=== PATIENT | male | born 1980 | race Two or more races ===

== ENCOUNTER 2018-10-11 13:25 | Inpatient (IN) | payer SELFPAY ==
[2018-10-11 13:46] VITALS: BMI 36.2
--- NOTE | 2018-10-11 14:03 | HP ---
CIWA Score Nausea/Vomitin Muscle Tremors: 3 Anxiety: 4-Mod. Anxious/Guarded Agitation: 0-Normal Activity Paroxysmal Sweats: 1-Minimal Palms Moist Orientation: 0-Oriented Tacttile Disturbances: 1-Very Mild Itch/Numbness Auditory Disturbances: 1-Very Mild Visual Disturbances: 1-Very Mild Sensitivity Headache: 2-Mild CIWA-Ar Total Score: 16 - Admission Criteria OASAS Guidelines: Admission for Medically Managed Detox: Requires at least one of the followin. CIWA greater than 12 2. Seizures within the past 24 hours 3. Delirium tremens within the past 24 hours 4. Hallucinations within the past 24 hours 5. Acute intervention needed for co occurring medical disorder 6. Acute intervention needed for co occurring psychiatric disorder 7. Severe withdrawal that cannot be handled at a lower level of care (continued vomiting, continued diarrhea, abnormal vital signs) requiring intravenous medication and/or fluids 8. Patient presents the following: CIWA greater than 12 Admission Criteria Met: Admission criteria met Admission ROS BHS - HPI Chief Complaint: I'm trying to stop this, I don't want to do this anymore, I'm convince alcohol is not for me, it makes me miserable Allergies/Adverse Reactions: Allergies Allergy/AdvReac Type Severity Reaction Status Date / Time No Known Allergies Allergy Verified 12/21/15 16:44 History of Present Illness: 38 yo gentleman here for detox from alcohol - history of black outs but denies seizures. Patient states he was taking ativan to help the shakes (urine tox + bzo) which he obtained from [place] - just came from [place] yesterday where he was living for several months. Long history of use - previous detox and rehab as well ast 12 step meetings, history of alcohol related pancreatitis.. Exam Limitations: Clinical Condition - Ebola screening Have you been sick,other than usual withdrawal symptoms: No - Review of Systems Constitutional: Loss of Appetite, Malaise, Changes in sleep EENT: reports: No Symptoms Reported Respiratory: reports: No Symptoms reported Cardiac: reports: No Symptoms Reported GI: reports: Nausea, Indigestion, Abdominal cramping, Other (rectal burning with defecation) : reports: Frequency Musculoskeletal: reports: Back Pain Integumentary: reports: Dryness Neuro: reports: Headache, Tremors Endocrine: reports: No Symptoms Reported Hematology: reports: No Symptoms Reported Psychiatric: reports: Judgement Intact, Mood/Affect Appropiate, Anxious Other Systems: Reviewed and Negative Patient History - Patient Medical History Hx Anemia: No Hx Asthma: No Hx Chronic Obstructive Pulmonary Disease (COPD): No Hx Cancer: No Hx Cardiac Disorders: No Hx Congestive Heart Failure: No Hx Hypertension: No Hx Hypercholesterolemia: No Hx Pacemaker: No HX Cerebrovascular Accident: No Hx Seizures: No Hx Dementia: No Hx Diabetes: No Hx Gastrointestinal Disorders: Yes (history pancreatitis, Hx GI ulcer) Hx Liver Disease: Yes (due to alcohol) Hx Genitourinary Disorders: No Hx Sexually Transmitted Disorders: No Hx Renal Disease (ESRD): No Hx Thyroid Disease: No Hx Human Immunodeficiency Virus (HIV): No (LAST 2013 NEGATIVE) Hx Hepatitis C: No Hx Depression: Yes (hospitalized last week x 1 day for evaluation (for a ') ) Hx Suicide Attempt: Yes (CUT THE WRIST AT THE AGO OF 8 YRS) Hx Bipolar Disorder: No Hx Schizophrenia: No - Patient Surgical History Past Surgical History: Yes Hx Neurologic Surgery: No Hx Cataract Extraction: No Hx Cardiac Surgery: No Hx Lung Surgery: No Hx Breast Surgery: No Hx Breast Biopsy: No Hx Abdominal Surgery: No Hx Appendectomy: Yes (S/P APPENDECTOMY) Hx Cholecystectomy: No Hx Genitourinary Surgery: No Hx Section: No Hx Orthopedic Surgery: No Anesthesia Reaction: No - PPD History Previous Implant?: Yes Documented Results: Positive w/proof Implanted On Prior [facility] Admission?: No PPD to be Administered?: No - Reproductive History Patient is a Female of Child Bearing Age (11 -55 yrs old): No (male) - Smoking Cessation Smoking history: Current every day smoker Have you smoked in the past 12 months: Yes Aproximately how many cigarettes per day: 3 Hx Chewing Tobacco Use: No Initiated information on smoking cessation: Yes 'Breaking Loose' booklet given: 10/11/18 (give on floor) - Substance & Tx. History Hx Alcohol Use: Yes Substance Use Type: Alcohol Hx Substance Use Treatment: Yes (detox, rehab) - Substances Abused alcohol Route: Oral Frequency: Daily Amount used: 1/5 aakash daily Age of first use: 1 (my dad owned a bar, age [age]) Date of Last Use: 10/11/18 Family Disease History - Family Disease History Family Disease History: Heart Disease: Mother (, HTN, renal ), Sister ( one - living - HTN, anxiety), CA: Father (, ), Mother, Other: Father, Mother, Sister, Daughter (three - ages 17,11,10 -healthy) Admission Physical Exam [facility] - Vital Signs Vital Signs: Vital Signs - 24 hr 10/11/18 13:43 Temperature 97.0 F L Pulse Rate 107 H Respiratory 20 Rate Blood Pressure 158/106 H - Physical General Appearance: Yes: Nourished, Appropriately Dressed, Moderate Distress, Obese, Tremorous, Anxious HEENTM: Yes: Hearing grossly Normal, Normocephalic, Normal Voice, Pharynx Normal Respiratory: Yes: Normal Breath Sounds, No Respiratory Distress Neck: Yes: No masses,lesions,Nodules, Supple Breast: Yes: Breast Exam Deferred Cardiology: Yes: Regular Rhythm, Tachycardia Abdominal: Yes: Normal Bowel Sounds, Flat Genitourinary: Yes: Frequency Back: Yes: Normal Inspection Musculoskeletal: Yes: full range of Motion, Gait Steady Extremities: Yes: Normal Inspection, Non-Tender Neurological: Yes: Fully Oriented, Alert, Normal Mood/Affect, Normal Response Integumentary: Yes: Normal Color, Warm Lymphatic: Yes: Within Normal Limits - Diagnostic (1) Alcohol dependence with uncomplicated withdrawal Current Visit: Yes Status: Chronic (2) Nicotine dependence Current Visit: Yes Status: Chronic Qualifiers: Nicotine product type: cigarettes Substance use status: uncomplicated Qualified Code(s): F17.210 - Nicotine dependence, cigarettes, uncomplicated (3) Hypertension Current Visit: Yes Status: Chronic Qualifiers: Hypertension type: essential hypertension Qualified Code(s): I10 - Essential (primary) hypertension (4) Dehydration Current Visit: Yes Status: Chronic (5) PPD positive, treated Current Visit: Yes Status: Chronic Comment: states took INH x 1 year (6) History of pancreatitis Current Visit: Yes Status: Chronic (7) History of gastric ulcer Current Visit: Yes Status: Chronic (8) Tachycardia Current Visit: Yes Status: Acute (9) Obesity (BMI 30-39.9) Current Visit: Yes Status: Chronic Cleared for Admission [facility] - Detox or Rehab [facility] Level of Care: Medically Managed Detox Regimen/Protocol: Librium S Breath Alcohol Content Breath Alcohol Content: 0.305 Urine Drug Screen - Results Drug Screen Negative: No Urine Drug Screen Results: BAR-Barbiturates, BZO-Benzodiazepines
[2018-10-11] MEDS ORDERED: MAGNESIUM CITRATE 300 ML BOTTLE PO PRN (14:18)
[2018-10-11] MEDS ORDERED: LOPERAMIDE HCL 2 MG CAPSULE PO PRN (14:18)
[2018-10-11] MEDS ORDERED: IBUPROFEN 400 MG TABLET (FP) PO PRN (14:18)
[2018-10-11] MEDS ORDERED: MAG HYDROX/AL HYDROX/SIMETH 30 ML UNIT-DOSE CUP PO PRN (14:18)
[2018-10-11] MEDS ORDERED: ACETAMINOPHEN 325 MG TABLET (FP) PO PRN (14:18)
[2018-10-11] MEDS ORDERED: NICOTINE POLACRILEX 4 MG GUM BUC PRN (14:18)
[2018-10-11] MEDS ORDERED: P-EPHED 60MG/TRIPROLIDI 2.5MG TABLET PO PRN (14:18)
[2018-10-11] MEDS ORDERED: guaiFENesin/D-METHORPHAN HB 10 ML UNIT-DOSE CUPS PO PRN (14:18)
[2018-10-11] MEDS ORDERED: MAGNESIUM HYDROX 2400MG/30ML ORAL SUSPENSION 30 ML CUP PO PRN (14:18)
[2018-10-11] MEDS ORDERED: MENTHOL/PHENOL 1 EACH UD MM PRN (14:18)
[2018-10-11] MEDS: chlordiazePOXIDE HCL 25 MG CAPSULE PO SCH ×2 (18:44→22:43)
[2018-10-11] MEDS: ONDANSETRON *ODT* 4 MG TABLET SL PRN (19:16)
[2018-10-11] MEDS: chlordiazePOXIDE HCL 25 MG CAPSULE PO PRN (21:06)
[2018-10-11] MEDS: hydrOXYzine PAMOATE 25 MG CAPSULE (FP) PO PRN (21:07)
[2018-10-11] MEDS ORDERED: hydrOXYzine PAMOATE 25 MG CAPSULE (FP) PO ONE (22:00)
[2018-10-11] MEDS: THIAMINE HCL 100 MG TABLET (FP) PO SCH (22:42)
[2018-10-11] MEDS ORDERED: chlordiazePOXIDE HCL 25 MG CAPSULE PO ONE (23:00)
[2018-10-12] MEDS: chlordiazePOXIDE HCL 25 MG CAPSULE PO SCH ×4 (05:17→22:46)
--- NOTE | 2018-10-12 08:19 | CONSULT ---
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 Patient has a long history of ETOH abuse, and nicotine dependence has been sober for the past 9 mo until he relapsed about 3-4 mo ago. He drinks Freda daily, he admitted Black out spells , no seizure related ETOH. Past history of smoking Marijuana and cocaine use. He occasionally use Ativan to help him alleviate hius drinking and decreae his hand tremor. It is to note that his urine tox was + for Benzo and Barbiturates. He has had prior Detox treatment and Rehabilitation In [facility] and [facility]. His most recent Detox admission was at [facility] earlier this year Medical History: His medical history is significant for hemorroids, Gastric ulcer, pancreatitis, and abnormal liver function tests. Past history of anal biopsy, apeendectomy Psychiatric History: Patient has had numerous past psychiatric hospitalizations in [facility] due to depression, and shifting mood, his most recent in patient psych admission was @ [facility],in March. Past history of self-cutting episode, after ETOH intoxication and also attempted to drink self to in past. Currently feels depressed, sad, with occasional mood swings with co- occcurring anxiety. He denies auditory or visual hallucination,, denies suicidal r homicidal ideation. Currently medicated with Gabapentin 600 mg po bid and Prozac 20 mg po daily. His medciations has been effective in alleviating his symptoms when sober Physical/Sexual Abuse/Trauma History: Denies past history of abuse Additional Comment: History of prior trouble with the law Mental Status Exam - Mental Status Exam Alert and Oriented to: Time, Place, Person Cognitive Function: Good Patient Appearance: Unkempt Mood: Depressed Affect: Appropriate Patient Behavior: Fatigued, Appropriate, Cooperative Speech Pattern: Clear, Appropriate Voice Loudness: Normal Thought Process: Intact Thought Disorder: Not Present Hallucinations: None, Denies Suicidal Ideation: None, Denies Homicidal Ideation: None, Denies Insight/Judgement: Poor Sleep: Difficulty falling asleep Appetite: Fair Muscle strength/Tone: Normal Gait/Station: Normal Psychiatric Findings - Problem List ([place] 1, 2,3) (1) Alcohol dependence with uncomplicated withdrawal Current Visit: Yes Status: Chronic (2) History of gastric ulcer Current Visit: Yes Status: Chronic (3) History of pancreatitis Current Visit: Yes Status: Chronic (4) Hypertension Current Visit: Yes Status: Chronic Qualifiers: Hypertension type: essential hypertension Qualified Code(s): I10 - Essential (primary) hypertension (5) Obesity (BMI 30-39.9) Current Visit: Yes Status: Chronic (6) Insomnia Current Visit: No Status: Acute (7) S/P appendectomy Current Visit: No Status: Acute (8) Drug-induced mood disorder Current Visit: No Status: Suspected - Initial Treatment Plan Initial Treatment Plan: Continue Detox treatment. Resume prozac 20 mg po daily. Neurontin 600 mg po bid. Monitor progress
[2018-10-12] MEDS: PRENATAL VITAMINS W/ FOLIC ACID TABLET (FP) PO SCH (10:10)
[2018-10-12] MEDS: GABAPENTIN 300 MG CAPSULE (FP) PO SCH ×2 (10:10→22:45)
[2018-10-12] MEDS: FLUoxetine HCL 20 MG CAPSULE (FP) PO SCH (10:10)
[2018-10-12 10:43] LABS: ALBUMIN 3.9 g/dl (3.4-5.0); ALK PHOS 76 U/L (45-117); ANION GAP 7 MMOL/L (8-16); BILIRUBIN,TOTAL 1.4 mg/dL (0.2-1); BLOOD UREA NITROGEN 10 mg/dL (7-18); CALCIUM 8.5 mg/dL (8.5-10.1); CHLORIDE 101 mmol/L (98-107); CO2 29 mmol/L (21-32); CREATININE 0.9 mg/dL (0.55-1.3); GLUCOSE,RANDOM 96 mg/dL (74-106); SGOT/AST 100 U/L (15-37); SGPT/ALT 100 U/L (13-61); SODIUM 138 mmol/L (136-145); TOT PROT 7.1 g/dl (6.4-8.2)
[2018-10-12 10:55] LABS: HEMATOCRIT 38.9 % (35.4-49); HEMOGLOBIN 12.8 GM/dL (11.7-16.9); MCH 29.1 pg (25.7-33.7); MCHC 32.9 g/dl (32.0-35.9); MEAN CELL VOLUME 88.3 fl (80-96); MEAN PLT VOLUME 8.3 fl (7.5-11.1); PLATELET COUNT 94 K/MM3 (134-434); RDW 15.6 % (11.9-15.9); WHITE BLOOD COUNT 5.9 K/mm3 (4.0-10.0)
--- NOTE | 2018-10-12 16:28 | PN ---
S CIWA - CIWA Score Nausea/Vomitin Muscle Tremors: 4-Moderate,w/Arms Extend Anxiety: 4-Mod. Anxious/Guarded Agitation: 1-Slight > Activity Paroxysmal Sweats: 3 Orientation: 0-Oriented Tacttile Disturbances: 1-Very Mild Itch/Numbness Auditory Disturbances: 0-None Visual Disturbances: 0-None Headache: 1-Very Mild CIWA-Ar Total Score: 16 BHS Progress Note (SOAP) Subjective: Sweating, tremor, numbness in fingers, interrupted sleep Objective: 10/12/18 16:23 Last Vital Signs Temp Pulse Resp BP Pulse Ox 97.0 F L 87 18 113/75 10/12/18 13:51 10/12/18 15:30 10/12/18 15:30 10/12/18 13:51 Laboratory Tests 10/12/18 10/12/18 10/12/18 07:30 07:30 07:30 WBC 5.9 RBC 4.40 Hgb 12.8 Hct 38.9 MCV 88.3 MCH 29.1 MCHC 32.9 RDW 15.6 D Plt Count 94 L D MPV 8.3 Sodium 138 Potassium 3.0 L Chloride 101 Carbon Dioxide 29 Anion Gap 7 L BUN 10 Creatinine 0.9 Creat Clearance w eGFR > 60 Random Glucose 96 Calcium 8.5 Total Bilirubin 1.4 H AST 100 H ALT 100 H Alkaline Phosphatase 76 Total Protein 7.1 Albumin 3.9 RPR Titer Nonreactive Labs reviewed: K 3.0, total bilirubin 1.4 Assessment: 10/12/18 16:24 Withdrawal symptoms Noted with hypokalemia and elevated total bilirubin Plan: Continue detox Encouraged PO water hydration Hypokalemia: asymptomatic, EKG normal; start K Dur 40 Meq PO liquid x 2 doses then K Dur 20 Meq PO daily, repeat serum K level in AM Elevated total bilirubin: asymptomatic; most likely due to alcohol dependence, repeat serum total bilirubin level
[2018-10-12] MEDS ORDERED: POTASSIUM CHLORIDE ORAL LIQUID 20 MEQ/15 ML PO ONE ×2 (16:30→22:00)
[2018-10-12] MEDS: hydrOXYzine PAMOATE 25 MG CAPSULE (FP) PO PRN ×2 (17:35→22:50)
--- NOTE | 2018-10-12 20:37 | PN ---
BHS Progress Note Note: Patient's blood pressure is B/P 149/110. Patient is asymptomatic. Vital Signs Temperature 97.1 F L 10/12/18 20:32 Pulse Rate 97 H 10/12/18 20:32 Respiratory Rate 18 10/12/18 20:32 Blood Pressure 149/110 H 10/12/18 20:32 O2 Sat by Pulse Oximetry (%) Action: Clonidine 0.1mg tablet oral ordered
[2018-10-12] MEDS ORDERED: cloNIDine HCL 0.1 MG TABLET PO ONE (20:45)
[2018-10-12] MEDS: ONDANSETRON *ODT* 4 MG TABLET SL PRN (22:13)
[2018-10-12] MEDS: THIAMINE HCL 100 MG TABLET (FP) PO SCH (22:45)
[2018-10-13] MEDS: chlordiazePOXIDE HCL 25 MG CAPSULE PO SCH ×2 (05:36→10:31)
[2018-10-13] MEDS: POTASSIUM CHLORIDE TABS 20 MEQ TABLET.ER (FP) PO SCH (10:29)
[2018-10-13] MEDS: GABAPENTIN 300 MG CAPSULE (FP) PO SCH ×2 (10:30→22:08)
[2018-10-13] MEDS: PRENATAL VITAMINS W/ FOLIC ACID TABLET (FP) PO SCH (10:31)
[2018-10-13] MEDS: FLUoxetine HCL 20 MG CAPSULE (FP) PO SCH (10:31)
[2018-10-13 10:52] LABS: BILIRUBIN,TOTAL 1.4 mg/dL (0.2-1); POTASSIUM 3.6 mmol/L (3.5-5.1)
[2018-10-13] MEDS: chlordiazePOXIDE 5 MG CAPSULE PO SCH ×2 (17:38→22:07)
[2018-10-13] MEDS: ONDANSETRON *ODT* 4 MG TABLET SL PRN (17:39)
[2018-10-13] MEDS: hydrOXYzine PAMOATE 25 MG CAPSULE (FP) PO PRN ×2 (17:39→21:16)
--- NOTE | 2018-10-13 18:32 | PN ---
BHS CIWA - CIWA Score Nausea/Vomitin-Mild Nausea/No Vomiting Muscle Tremors: 3 Anxiety: 3 Agitation: 3 Paroxysmal Sweats: 3 Orientation: 0-Oriented Tacttile Disturbances: 0-None Auditory Disturbances: 0-None Visual Disturbances: 0-None Headache: 0-None Present CIWA-Ar Total Score: 13 BHS Progress Note (SOAP) Subjective: abd pain sweats shakes Objective: 10/13/18 18:31 A & O x 3 sitting up on bed Assessment: 10/13/18 18:31 withdrawal sx Plan: continue detox
[2018-10-13] MEDS: MELATONIN 5 MG TABLETS PO PRN (22:08)
[2018-10-13] MEDS: THIAMINE HCL 100 MG TABLET (FP) PO SCH (22:08)
[2018-10-14] MEDS: chlordiazePOXIDE 5 MG CAPSULE PO SCH ×2 (05:39→10:07)
[2018-10-14] MEDS: hydrOXYzine PAMOATE 25 MG CAPSULE (FP) PO PRN ×3 (09:05→22:13)
[2018-10-14] MEDS: PRENATAL VITAMINS W/ FOLIC ACID TABLET (FP) PO SCH (10:07)
[2018-10-14] MEDS: FLUoxetine HCL 20 MG CAPSULE (FP) PO SCH (10:07)
[2018-10-14] MEDS: POTASSIUM CHLORIDE TABS 20 MEQ TABLET.ER (FP) PO SCH (10:07)
[2018-10-14] MEDS: GABAPENTIN 300 MG CAPSULE (FP) PO SCH ×2 (10:07→22:13)
[2018-10-14] MEDS: chlordiazePOXIDE HCL 25 MG CAPSULE PO PRN (12:31)
--- NOTE | 2018-10-14 16:09 | PN ---
BHS Progress Note (SOAP) Subjective: Feels crawling on skin, anxious, sweating, tremor Objective: 10/14/18 16:08 Last Vital Signs Temp Pulse Resp BP Pulse Ox 97.6 F 92 H 20 141/97 10/14/18 13:31 10/14/18 13:31 10/14/18 13:31 10/14/18 13:31 Laboratory Tests 10/12/18 10/12/18 10/12/18 07:30 07:30 07:30 WBC 5.9 RBC 4.40 Hgb 12.8 Hct 38.9 MCV 88.3 MCH 29.1 MCHC 32.9 RDW 15.6 D Plt Count 94 L D MPV 8.3 Sodium 138 Potassium 3.0 L Chloride 101 Carbon Dioxide 29 Anion Gap 7 L BUN 10 Creatinine 0.9 Creat Clearance w eGFR > 60 Random Glucose 96 Calcium 8.5 Total Bilirubin 1.4 H AST 100 H ALT 100 H Alkaline Phosphatase 76 Total Protein 7.1 Albumin 3.9 RPR Titer Nonreactive 10/13/18 07:45 WBC RBC Hgb Hct MCV MCH MCHC RDW Plt Count MPV Sodium Potassium 3.6 Chloride Carbon Dioxide Anion Gap BUN Creatinine Creat Clearance w eGFR Random Glucose Calcium Total Bilirubin 1.4 H AST ALT Alkaline Phosphatase Total Protein Albumin RPR Titer Labs reviewed Assessment: 10/14/18 16:08 Withdrawal symptoms Plan: Continue detox Encouraged PO water intake
[2018-10-14] MEDS: chlordiazePOXIDE HCL 10 MG CAPSULE PO SCH ×2 (17:36→22:12)
[2018-10-14] MEDS: THIAMINE HCL 100 MG TABLET (FP) PO SCH (22:13)
[2018-10-15] MEDS: MELATONIN 5 MG TABLETS PO PRN (00:24)
[2018-10-15] MEDS: chlordiazePOXIDE HCL 10 MG CAPSULE PO SCH (06:04)
[2018-10-15 10:16] VITALS: BP 135/92; PULSE 113; TEMP 96.6
--- NOTE | 2018-10-15 10:30 | PN ---
[facility] Progress Note Note: Psychiatry Attending's note : Approached by patient. Mr Linton expresses concern about his scripts at discharge. " I just relocated from [place] and my medicaid is not active ". Patient worries about his inability to pay for his medications. States that fluoxetine + gabapentin keep him functioning and stable. Fearful of the prospect of decompensation/relapse without his medications. Patient is conversant, well-mannered, pleasant on approach, neatly groomed and goal-directed. Feels well. Eager to maintain adherence to his aftercare (medications + AA fellowship). Indicates that he is currently relying on his sister for temporary housing (she is a [place] resident). As an alternate housing plan, the patient is considering the option of going to a [place] facility. Mental status is stable. Patient is future-oriented, cognitively intact and motivated for sobriety. Noted as euthymic, well-controlled, free of hallucinations/delusions; no evidence of thought disorder. Patient denies suicidal/homicidal ideation, intent or plan. Endorses adequate sleep + appetite. Well rested. Chart reviewed. Medications revisited. Psychiatric consult (10/11/18) by Dr Sims : read and appreciated. Medications confirmed. No adverse effects reported. Endorsed by the patient as effective and well tolerated. Mr Linton is reminded, by this bond underwriter, of side effects/benefits of fluoxetine + gabapentin. Psychoeducation (benefits of sobriety, MAT protocol for relapse prevention, OTP follow-up) : provided in session. Reassurance given : scripts for prozac + gabapentin sent electronically to [facility] (30 day supply). As follows : prozac 20 mg po daily + gabapentin 600 mg po bid. Patient agrees to this plan of care. Baseline.
--- NOTE | 2018-10-15 15:48 | PN ---
BHS Progress Note (SOAP) Subjective: Patient Denies any current Withdrawal symptoms and reports that he feels well overall. Objective: PATIENT A & O X 3, OBSERVED AMBULATING ON UNIT. NO ACUTE DISTRESS. 10/15/18 15:46 Vital Signs Temperature 96.6 F L 10/15/18 10:16 Pulse Rate 113 H 10/15/18 10:16 Respiratory Rate 18 10/15/18 10:16 Blood Pressure 135/92 10/15/18 10:16 O2 Sat by Pulse Oximetry (%) Laboratory Tests 10/12/18 10/12/18 10/12/18 07:30 07:30 07:30 WBC 5.9 RBC 4.40 Hgb 12.8 Hct 38.9 MCV 88.3 MCH 29.1 MCHC 32.9 RDW 15.6 D Plt Count 94 L D MPV 8.3 Sodium 138 Potassium 3.0 L Chloride 101 Carbon Dioxide 29 Anion Gap 7 L BUN 10 Creatinine 0.9 Creat Clearance w eGFR > 60 Random Glucose 96 Calcium 8.5 Total Bilirubin 1.4 H AST 100 H ALT 100 H Alkaline Phosphatase 76 Total Protein 7.1 Albumin 3.9 RPR Titer Nonreactive 10/13/18 07:45 WBC RBC Hgb Hct MCV MCH MCHC RDW Plt Count MPV Sodium Potassium 3.6 Chloride Carbon Dioxide Anion Gap BUN Creatinine Creat Clearance w eGFR Random Glucose Calcium Total Bilirubin 1.4 H AST ALT Alkaline Phosphatase Total Protein Albumin RPR Titer LABS NOTED. Assessment: 10/15/18 15:47 COMPLETION OF DETOX REGIMEN. 10/15/18 15:47 Plan: PATIENT SCHEDULED FOR DISCHARGE FROM DETOX UNIT TODAY.
--- NOTE | 2018-10-15 15:52 | DS ---
[facility] Detox Discharge Summary Admission Date: 10/11/18 Discharge Date: 10/15/18 - History Present History: Alcohol Dependence Additional Comments: PATIENT TO RETURN TO PREVIOUS [facility] ( [place] [place]) FOR AFTERCARE. PATIENT WAS DISCHARGED FROM DETOX UNIT IN STABLE MEDICAL CONDITION. Pertinent Past History: Tachycardia, History of Gastric Ulcer, History of Pancreatitis, HTN, History of Positive PPD, Obesity. - Physical Exam Results Vital Signs: Vital Signs Temperature 96.6 F L 10/15/18 10:16 Pulse Rate 113 H 10/15/18 10:16 Respiratory Rate 18 10/15/18 10:16 Blood Pressure 135/92 10/15/18 10:16 O2 Sat by Pulse Oximetry (%) Pertinent Admission Physical Exam Findings: WITHDRAWAL SYMPTOMS. Laboratory Tests 10/12/18 10/12/18 10/12/18 07:30 07:30 07:30 WBC 5.9 RBC 4.40 Hgb 12.8 Hct 38.9 MCV 88.3 MCH 29.1 MCHC 32.9 RDW 15.6 D Plt Count 94 L D MPV 8.3 Sodium 138 Potassium 3.0 L Chloride 101 Carbon Dioxide 29 Anion Gap 7 L BUN 10 Creatinine 0.9 Creat Clearance w eGFR > 60 Random Glucose 96 Calcium 8.5 Total Bilirubin 1.4 H AST 100 H ALT 100 H Alkaline Phosphatase 76 Total Protein 7.1 Albumin 3.9 RPR Titer Nonreactive 10/13/18 07:45 WBC RBC Hgb Hct MCV MCH MCHC RDW Plt Count MPV Sodium Potassium 3.6 Chloride Carbon Dioxide Anion Gap BUN Creatinine Creat Clearance w eGFR Random Glucose Calcium Total Bilirubin 1.4 H AST ALT Alkaline Phosphatase Total Protein Albumin RPR Titer LABS NOTED. - Treatment Hospital Course: Detox Protocol Followed, Detoxed Safely, Responded well, Discharged Condition Good Patient has Accepted a Rehab Referral to: PT GOING TO [facility] ([place], [place]). - Medication Discharge Medications: Ambulatory Orders Fluoxetine HCl [Prozac -] 20 mg PO DAILY 10/11/18 Fluoxetine HCl [Prozac] 20 mg PO DAILY #30 capsule 10/15/18 Gabapentin [Neurontin] 600 mg PO BID #60 tablet 10/15/18 - Diagnosis (1) Alcohol dependence with uncomplicated withdrawal Status: Acute (2) History of gastric ulcer Status: Chronic (3) Hypertension Status: Chronic Qualifiers: Hypertension type: essential hypertension Qualified Code(s): I10 - Essential (primary) hypertension (4) Obesity (BMI 30-39.9) Status: Chronic (5) PPD positive, treated Status: Chronic (6) Drug-induced mood disorder Status: Suspected (7) Tachycardia Status: Acute (8) Dehydration Status: Chronic (9) Nicotine dependence Status: Chronic Qualifiers: Nicotine product type: cigarettes Substance use status: uncomplicated Qualified Code(s): F17.210 - Nicotine dependence, cigarettes, uncomplicated (10) History of pancreatitis Status: Chronic - AMA Did Patient Leave Against Medical Advice: No
--- NOTE | 2018-10-15 16:55 | EKG ---
Test Reason : Blood Pressure : / mmHG Vent. Rate : 092 BPM Atrial Rate : 092 BPM P-R Int : 154 ms QRS Dur : 092 ms QT Int : 358 ms P-R-T Axes : 064 069 026 degrees QTc Int : 442 ms NORMAL SINUS RHYTHM NORMAL ECG NO PREVIOUS ECGS AVAILABLE Confirmed by PHILL POLANCO MD ([id number]) on 10/15/2018 4:55:29 PM Referred By: Nina Moser Confirmed By:PHILL POLANCO MD
== END 2018-10-15 10:21 | disposition home or self-care (01) | DRG 775 ==
LOC: YASAS 13:25 → Y3N 16:03
PROC: HZ2ZZZZ Detoxification Services for Substance Abuse Treatment (ICD-10-PCS; principal; 2018-10-11)
DX: F10.230 Alcohol dependence with withdrawal, uncomplicated (principal); F17.210 Nicotine dependence, cigarettes, uncomplicated; F19.24 Other psychoactive substance dependence with psychoactive substance-induced mood disorder; I10 Essential (primary) hypertension; R76.11 Nonspecific reaction to tuberculin skin test without active tuberculosis; R00.0 Tachycardia, unspecified; E86.0 Dehydration; E80.7 Disorder of bilirubin metabolism, unspecified; E87.6 Hypokalemia; G47.00 Insomnia, unspecified; E66.9 Obesity, unspecified; Z68.36 Body mass index [BMI] 36.0-36.9, adult; Z91.5 Personal history of self-harm
CPT/HCPCS: 36415; 71046-TC-FY; 80053; 82247; 84132; 85027; 86593; 93005; 93010; J0735; Q0162

== ENCOUNTER 2020-12-16 18:12 | Inpatient (IN) | payer OTHER ==
[2020-12-16] MEDS ORDERED: LACTATED RINGERS SOLUTION 1000 ML INFUS.BAG IV ONE (19:53)
[2020-12-16] MEDS ORDERED: morphine CARPU-JECT 4 MG/1 ML DISP.SYRIN IVPUSH ONE ×2 (19:53→22:11)
[2020-12-16] MEDS ORDERED: ONDANSETRON 4 MG/2 ML VIAL IVPUSH ONE ×2 (19:53→22:11)
[2020-12-16] MEDS ORDERED: morphine SULFATE 4 MG/ML VIAL ONE (20:53)
[2020-12-16] MEDS ORDERED: ONDANSETRON 4 MG/2 ML VIAL ONE ×2 (20:53→22:26)
[2020-12-16] MEDS ORDERED: SODIUM CHLORIDE 0.9% 500 ML INFUS.BAG IV ONE (21:54)
[2020-12-16 22:05] LABS: EOS % 0.3 % (0-4.5); HEMATOCRIT 36.1 % (35.4-49); HEMOGLOBIN 12.7 GM/dL (11.7-16.9); LYMPH % 28.9 % (8-40); MCH 31.7 pg (25.7-33.7); MCHC 35.2 g/dl (32.0-35.9); MEAN CELL VOLUME 90.1 fl (80-96); MEAN PLT VOLUME 7.8 fl (7.5-11.1); MONO % 7.6 % (3.8-10.2); NEUT % 62.2 % (42.8-82.8); PLATELET COUNT 133 K/MM3 (134-434); RDW 13.9 % (11.9-15.9); WHITE BLOOD COUNT 7.1 K/mm3 (4.0-10.0)
[2020-12-16] MEDS ORDERED: ACETAMINOPHEN 1000 MG/100 ML VIAL (NON FORMULARY) IVPB ONE (22:13)
[2020-12-16] MEDS ORDERED: chlordiazePOXIDE HCL 25 MG CAPSULE PO ONE (22:17)
[2020-12-16] MEDS ORDERED: ACETAMINOPHEN INJECTION 100 ML IVPB ONE (22:26)
[2020-12-16] MEDS ORDERED: chlordiazePOXIDE HCL 25 MG CAPSULE ONE (22:26)
[2020-12-16 22:33] LABS: CHLORIDE 102 mmol/L (98-107); POTASSIUM 3.4 mmol/L (3.5-5.1); SODIUM 141 mmol/L (136-145)
[2020-12-16 22:35] LABS: ALBUMIN 4.4 g/dl (3.4-5.0); CALCIUM 8.8 mg/dL (8.5-10.1)
[2020-12-16 22:36] LABS: ANION GAP 18 MMOL/L (8-16); BLOOD UREA NITROGEN 13.3 mg/dL (7-18); CO2 21 mmol/L (21-32); GLUCOSE,RANDOM 80 mg/dL (74-106); LIPASE 80 U/L (73-393)
[2020-12-16 22:38] LABS: CREATININE 1.1 mg/dL (0.55-1.3); SGOT/AST 65 U/L (15-37); SGPT/ALT 69 U/L (13-61)
[2020-12-16 22:40] LABS: BILIRUBIN,TOTAL 1.3 mg/dL (0.2-1); TOT PROT 7.8 g/dl (6.4-8.2)
[2020-12-16 22:41] LABS: ALK PHOS 70 U/L (45-117)
[2020-12-16] MEDS ORDERED: MAGNESIUM SULF 50% (8.12 MEQ/2 ML-1 GM VIAL) IVPB ONE (22:53)
[2020-12-16] MEDS ORDERED: MAGNESIUM SULF 50% (8.12 MEQ/2 ML-1 GM VIAL) ONE (23:39)
[2020-12-16] MEDS ORDERED: LORazepam 2 MG/ML SDV VIAL IVPUSH ONE (23:41)
[2020-12-16] MEDS ORDERED: LORazepam 2 MG/ML SDV VIAL ONE (23:54)
[2020-12-17] MEDS ORDERED: THIAMINE HCL 200 MG/2 ML VIAL IVPB ONE (01:49)
[2020-12-17] MEDS ORDERED: chlordiazePOXIDE HCL 25 MG CAPSULE PO ONE (01:59)
[2020-12-17] MEDS ORDERED: KETOROLAC TROMETHAMINE 30 MG/1 ML VIAL IVPUSH ONE (01:59)
[2020-12-17] MEDS ORDERED: LIDOCAINE 5% TOPICAL PATCH TP ONE (01:59)
[2020-12-17] MEDS ORDERED: LORazepam 2 MG/ML SDV VIAL IVPUSH ONE (02:00)
[2020-12-17 02:41] LABS: POTASSIUM 3.8 mmol/L (3.5-5.1)
[2020-12-17 02:42] LABS: BLOOD UREA NITROGEN 13.4 mg/dL (7-18); CALCIUM 8.7 mg/dL (8.5-10.1)
[2020-12-17 02:46] LABS: CREATININE 0.9 mg/dL (0.55-1.3)
[2020-12-17] MEDS ORDERED: THIAMINE HCL 200 MG/2 ML VIAL ONE (03:02)
[2020-12-17] MEDS ORDERED: chlordiazePOXIDE HCL 25 MG CAPSULE ONE (03:02)
[2020-12-17] MEDS ORDERED: LORazepam 2 MG/ML SDV VIAL ONE (03:02)
[2020-12-17] MEDS ORDERED: KETOROLAC TROMETHAMINE 30 MG/1 ML VIAL ONE (03:03)
[2020-12-17] MEDS ORDERED: LIDOCAINE 5% TOPICAL PATCH ONE (03:03)
[2020-12-17] MEDS ORDERED: POTASSIUM CHLORIDE 20 MEQ PREMIX IVPB 100 ML IVPB ONE (03:51)
[2020-12-17] MEDS ORDERED: POTASSIUM CHLORIDE 10 MEQ PREMIX IVPB (POTASSIUM RIDER) IVPB ONE (03:51)
[2020-12-17 04:35] LABS: MAGNESIUM 2.5 mg/dL (1.8-2.4)
[2020-12-17 04:41] LABS: EPI CELLS 11 /uL (0-25.1); HYALINE CASTS 5 /uL (0-3.1); URINE APPEARANCE CLEAR; URINE BACTERIA 66 /uL (0-1359); URINE BILIRUBIN NEGATIVE (NEGATIVE); URINE COLOR YELLOW; URINE GLUCOSE (UA) NEGATIVE (NEGATIVE); URINE KETONE 3+ (NEGATIVE); URINE LEUK ESTERASE NEGATIVE (NEGATIVE); URINE NITRITE NEGATIVE (NEGATIVE); URINE PROTEIN 1+ (NEGATIVE); URINE RBC 35 /uL (0-23.9); URINE WBC 6 /uL (0-25.8)
[2020-12-17] MEDS ORDERED: KCL 10 MEQ IVPB 10 MEQ/100 ML INFUS.BAG IVPB ONE (04:41)
[2020-12-17] MEDS ORDERED: LORazepam 1 MG TABLET ONE ×2 (06:14→10:43)
[2020-12-17] MEDS: LORazepam 1 MG TABLET PO SCH ×4 (06:38→22:13)
[2020-12-17 08:21] LABS: HEMATOCRIT 33.3 % (35.4-49); HEMOGLOBIN 11.4 GM/dL (11.7-16.9); MCH 31.3 pg (25.7-33.7); MCHC 34.1 g/dl (32.0-35.9); MEAN CELL VOLUME 91.6 fl (80-96); MEAN PLT VOLUME 8.2 fl (7.5-11.1); PLATELET COUNT 105 K/MM3 (134-434); RBC 3.64 M/mm3 (4.00-5.60); RDW 13.6 % (11.9-15.9); WHITE BLOOD COUNT 8.7 K/mm3 (4.0-10.0)
[2020-12-17 08:31] LABS: INR 1.05 (0.83-1.09); PROTHROMBIN TIME (PATIENT) 12.7 SEC (9.7-13.0)
[2020-12-17 09:12] LABS: CALCIUM 8.1 mg/dL (8.5-10.1); MAGNESIUM 2.3 mg/dL (1.8-2.4)
[2020-12-17 09:14] LABS: BILIRUBIN,TOTAL 1.7 mg/dL (0.2-1)
[2020-12-17 09:17] LABS: TOT PROT 7.1 g/dl (6.4-8.2)
[2020-12-17] MEDS ORDERED: ONDANSETRON 4 MG/2 ML VIAL ONE (09:24)
[2020-12-17] MEDS: ONDANSETRON 4 MG/2 ML VIAL IVPUSH PRN ×2 (09:35→17:16)
[2020-12-17 09:44] LABS: BLOOD UREA NITROGEN 13.8 mg/dL (7-18); CREATININE 0.9 mg/dL (0.55-1.3); POTASSIUM 3.5 mmol/L (3.5-5.1)
[2020-12-17] MEDS ORDERED: POTASSIUM CHLORIDE TABS 10 MEQ TABLET.ER (FP) PO SCH (10:00)
[2020-12-17] MEDS ORDERED: PANTOPRAZOLE 40 MG TABLET ONE (10:43)
[2020-12-17] MEDS ORDERED: THIAMINE HCL 100 MG TABLET (FP) ONE (10:43)
[2020-12-17] MEDS ORDERED: FOLIC ACID 1 MG TABLET (FP) ONE (10:44)
[2020-12-17] MEDS: FOLIC ACID 1 MG TABLET (FP) PO SCH (10:53)
[2020-12-17] MEDS: THIAMINE HCL 100 MG TABLET (FP) PO SCH (10:53)
[2020-12-17] MEDS: PANTOPRAZOLE 40 MG TABLET PO SCH (10:53)
[2020-12-17] MEDS: ENOXAPARIN NA (PORCINE) 40 MG/0.4 ML DISP.SYRIN SQ SCH (12:01)
[2020-12-17 13:41] VITALS: BMI 22.6
[2020-12-17] MEDS ORDERED: LIDOCAINE PATCH REMOVAL MC ONE (15:00)
[2020-12-17] MEDS ORDERED: POTASSIUM CHLORIDE TABS 20 MEQ TABLET.ER (FP) PO ONE (16:18)
[2020-12-17] MEDS: ARTIFICIAL TEARS (POLYVINYL ALCOHOL) OPTH DROPS OU SCH ×2 (19:59→21:42)
[2020-12-17] MEDS ORDERED: SIMETHICONE 80 MG TAB.CHEW (FP) PO ONE (20:02)
[2020-12-17] MEDS ORDERED: ACETAMINOPHEN 325 MG TABLET (FP) PO ONE (22:04)
[2020-12-18] MEDS: ONDANSETRON 4 MG/2 ML VIAL IVPUSH PRN (03:22)
[2020-12-18] MEDS: LORazepam 1 MG TABLET PO PRN ×2 (03:22→07:28)
[2020-12-18] MEDS: LORazepam 1 MG TABLET PO SCH ×4 (06:14→22:13)
[2020-12-18 08:25] LABS: POTASSIUM 3.5 mmol/L (3.5-5.1)
[2020-12-18 08:26] LABS: CALCIUM 8.6 mg/dL (8.5-10.1)
[2020-12-18 08:27] LABS: BLOOD UREA NITROGEN 14.3 mg/dL (7-18)
[2020-12-18 08:30] LABS: CREATININE 0.9 mg/dL (0.55-1.3)
[2020-12-18] MEDS: ARTIFICIAL TEARS (POLYVINYL ALCOHOL) OPTH DROPS OU SCH ×2 (11:02→22:13)
[2020-12-18] MEDS: FOLIC ACID 1 MG TABLET (FP) PO SCH (11:05)
[2020-12-18] MEDS: POTASSIUM CHLORIDE TABS 10 MEQ TABLET.ER (FP) PO SCH (11:11)
[2020-12-18] MEDS: PANTOPRAZOLE 40 MG TABLET PO SCH (11:11)
[2020-12-18] MEDS: THIAMINE HCL 100 MG TABLET (FP) PO SCH (11:11)
[2020-12-18] MEDS: ENOXAPARIN NA (PORCINE) 40 MG/0.4 ML DISP.SYRIN SQ SCH (11:11)
[2020-12-18] MEDS: SIMETHICONE 80 MG TAB.CHEW (FP) PO PRN ×3 (14:24→22:06)
[2020-12-19] MEDS ORDERED: LORazepam 0.5 MG TABLET PO PRN
[2020-12-19] MEDS ORDERED: ACETAMINOPHEN 325 MG TABLET (FP) PO PRN (00:20)
[2020-12-19] MEDS ORDERED: TETRAHYDROZOLINE HCL EYE DROPS OU PRN (01:26)
[2020-12-19] MEDS: LORazepam 0.5 MG TABLET PO SCH ×2 (05:48→10:48)
[2020-12-19] MEDS ORDERED: LORATADINE 10 MG TABLET PO ONE (05:59)
[2020-12-19 06:47] LABS: BASO % 0.8 % (0-2.0); EOS % 4.8 % (0-4.5); HEMATOCRIT 34.6 % (35.4-49); HEMOGLOBIN 12.4 GM/dL (11.7-16.9); LYMPH % 33.3 % (8-40); MCH 31.8 pg (25.7-33.7); MCHC 35.8 g/dl (32.0-35.9); MEAN CELL VOLUME 88.7 fl (80-96); MEAN PLT VOLUME 8.3 fl (7.5-11.1); MONO % 10.1 % (3.8-10.2); PLATELET COUNT 95 K/MM3 (134-434); RDW 13.2 % (11.9-15.9); WHITE BLOOD COUNT 6.3 K/mm3 (4.0-10.0)
[2020-12-19 07:02] LABS: POTASSIUM 3.4 mmol/L (3.5-5.1)
[2020-12-19 07:06] LABS: ALBUMIN 3.7 g/dl (3.4-5.0); BLOOD UREA NITROGEN 12.6 mg/dL (7-18); CALCIUM 8.7 mg/dL (8.5-10.1); MAGNESIUM 2.1 mg/dL (1.8-2.4)
[2020-12-19 07:10] LABS: PHOSPHOROUS 3.7 mg/dL (2.5-4.9)
[2020-12-19 07:11] LABS: BILIRUBIN,TOTAL 1.7 mg/dL (0.2-1); TOT PROT 6.9 g/dl (6.4-8.2)
[2020-12-19] MEDS: THIAMINE HCL 100 MG TABLET (FP) PO SCH (10:47)
[2020-12-19] MEDS: FOLIC ACID 1 MG TABLET (FP) PO SCH (10:48)
[2020-12-19] MEDS: PANTOPRAZOLE 40 MG TABLET PO SCH (10:48)
[2020-12-19] MEDS: ENOXAPARIN NA (PORCINE) 40 MG/0.4 ML DISP.SYRIN SQ SCH (10:50)
[2020-12-19] MEDS: POTASSIUM CHLORIDE TABS 10 MEQ TABLET.ER (FP) PO SCH (10:50)
[2020-12-19] MEDS: ARTIFICIAL TEARS (POLYVINYL ALCOHOL) OPTH DROPS OU SCH (10:50)
[2020-12-19] MEDS ORDERED: POTASSIUM CHLORIDE TABS 20 MEQ TABLET.ER (FP) PO ONE (11:15)
[2020-12-19] MEDS: SIMETHICONE 80 MG TAB.CHEW (FP) PO PRN (11:46)
[2020-12-19 14:46] VITALS: BP 140/96; PULSE 85; TEMP 98.7
[2020-12-20] MEDS ORDERED: LORazepam 0.5 MG TABLET PO ONE (05:00)
== END 2020-12-19 16:51 | disposition home or self-care (01) | DRG 774 ==
LOC: JER 18:12 → JERBED 12-17 01:36 → J7W 12-17 12:19
PROVIDERS: ADMIT Internal Medicine; ATTEND Internal Medicine
PROC: HZ2ZZZZ Detoxification Services for Substance Abuse Treatment (ICD-10-PCS; principal; 2020-12-16)
DX: F10.230 Alcohol dependence with withdrawal, uncomplicated (principal); E87.6 Hypokalemia; I10 Essential (primary) hypertension; F14.10 Cocaine abuse, uncomplicated; F12.10 Cannabis abuse, uncomplicated; Z87.11 Personal history of peptic ulcer disease; F17.210 Nicotine dependence, cigarettes, uncomplicated; E66.9 Obesity, unspecified; Z68.36 Body mass index [BMI] 36.0-36.9, adult; R11.2 Nausea with vomiting, unspecified; U07.1 COVID-19; R94.31 Abnormal electrocardiogram [ECG] [EKG]; D69.6 Thrombocytopenia, unspecified; E80.6 Other disorders of bilirubin metabolism
CPT/HCPCS: 36415; 71046-TC-FY; 74176-TC; 80048; 80053; 81003; 82272; 83690; 83735; 84100; 84484; 85025; 85027; 85610; 86769; 87086; 93005; 93010; 99285-25; C9803; J0131; U0003